=== PATIENT | male | born 1980 ===

== ENCOUNTER 2017-01-05 16:46 | Inpatient (IN) | payer MEDICARE, OTHER ==
[2017-01-05 16:46] VITALS: BMI 21.2
--- NOTE | 2017-01-05 18:11 | C.PDOC ---
History Of Present Illness 36 y/o male with PMHx of schizophrenia, bipolar disorder, anxiety, manic depression presents to ED with c/o hearing voices telling him to kill himself and other people for months. Patient with history of rehab for drug abuse, previously addicted to cocaine. Notes he recently filled prescription for Risperidone on 01/03/17 (2 days ago), and that symptoms worsening since then. Reports auditory and visual hallucinations. Describes seeing shadows and crystals; voices telling him to jump off a bridge. Denies suicidal attempt. No other medical complaints. Time Seen by Provider: 01/05/17 17:51 Chief Complaint (Nursing): Psychiatric Evaluation History Per: Patient History/Exam Limitations: no limitations Current Symptoms Are (Timing): Still Present Modifying Factor(s): None Associated Symptoms: Anxiety, Suicidal Thoughts Recent travel outside of the [place]: No Past Medical History Reviewed: Historical Data, Nursing Documentation, Vital Signs Vital Signs: Last Vital Signs Temp 98.4 F 01/05/17 22:55 Pulse 75 01/05/17 22:55 Resp 18 01/05/17 22:55 BP 108/65 01/05/17 22:55 Pulse Ox 98 01/05/17 22:55 - Medical History PMH: Anxiety, Bipolar Disorder, Depression, Schizophrenia - [facility] Procedures GROUP STYLIST APPRENTICE FOR SUBSTANCE ABUSE TREATMENT, PSYCHOEDUCATION (06/08/16) GROUP PSYCHOTHERAPY (07/07/16) INDIVIDUAL PSYCHOTHERAPY, SUPPORTIVE (07/07/16) MEDICATION MANAGEMENT (07/07/16) Family History: States: Unknown Family Hx - Social History Hx Tobacco Use: No Hx Alcohol Use: Yes Hx Substance Use: Yes - Immunization History Hx Tetanus Toxoid Vaccination: Yes Hx Influenza Vaccination: No Hx Pneumococcal Vaccination: No Review Of Systems Except As Marked, All Systems Reviewed And Found Negative. Constitutional: Negative for: Fever Cardiovascular: Negative for: Chest Pain Respiratory: Negative for: Shortness of Breath Gastrointestinal: Negative for: Vomiting Skin: Negative for: Rash Psych: Positive for: Anxiety, Depression, Other (auditory/visual hallucinations) Physical Exam - Physical Exam Appears: Non-toxic, No Acute Distress Skin: Normal Color, Warm, Dry Head: Atraumatic, Normacephalic Oral Mucosa: Moist Chest: Symmetrical Cardiovascular: Rhythm Regular, No Murmur Respiratory: Normal Breath Sounds, No Rales, No Rhonchi, No Wheezing Gastrointestinal/Abdominal: Soft, No Tenderness Back: Normal Inspection Extremity: Normal ROM, Capillary Refill (< 2 sec.) Neurological/Psych: Oriented x3, Normal Speech, Normal Cognition ED Course And Treatment - Laboratory Results Result Diagrams: 01/05/17 18:17 01/05/17 18:17 Lab Interpretation: No Acute Changes (UDS positive for cocaine) O2 Sat by Pulse Oximetry: 98 (RA) Pulse Ox Interpretation: Normal Progress Note: Patient evaluated by Crisis and will consult with psychiatry. - Physician Consult Information Physician Contacted: Rebeka Campos Outcome Of Conversation: Patent to remain in [facility] ED until his evaluation in the AM. Disposition - Disposition Disposition Time: 00:07 Condition: STABLE - Clinical Impression Clinical Impression: Schizophrenia, Suicidal ideation - Scribe Statement The provider has reviewed the documentation as recorded by the Stewart Wallace Provider Scribe Attestation: All medical record entries made by the Scribe were at my direction and personally dictated by me. I have reviewed the chart and agree that the record accurately reflects my personal performance of the history, physical exam, medical decision making, and the department course for this patient. I have also personally directed, reviewed, and agree with the discharge instructions and disposition. Physician Patient Turnover Patient Signed Over To: Valerie Horta Handoff Comments: Evaluation by Dr Campos in the AM.
[2017-01-05 18:21] LABS: BASO % 0.5 % (0.0-2.0); EOS # 0.1 K/uL (0.0-0.7); HEMATOCRIT 41.7 % (35.0-51.0); LYMPH # 2.5 K/uL (1.0-4.3); LYMPH % 28.5 % (20.0-40.0); MEAN CORPUSCULAR HGB CONC 34.5 g/dL (33.0-37.0); MEAN PLATELET VOLUME 8.6 fL (7.2-11.7); MONO # 1.4 K/uL (0.0-0.8); RED CELL DISTRIBUTION WIDTH 14.3 % (11.5-14.5); WHITE BLOOD COUNT 8.7 K/uL (4.8-10.8)
[2017-01-05 18:24] LABS: MEAN CELL VOLUME 92.7 fL (80.0-94.0)
[2017-01-05 18:26] LABS: RBC URINE 3 /hpf (0-3); URINE BACTERIA RARE (<OCC); URINE BILIRUBIN NEGATIVE (NEGATIVE); URINE BLOOD NEGATIVE (NEGATIVE); URINE COLOR Yellow (YELLOW); URINE GLUCOSE (UA) NORMAL (Normal); URINE KETONE NEGATIVE (NEGATIVE); URINE LEUKOCYTE ESTERASE NEG Leu/uL (Negative); URINE PROTEIN NEGATIVE (NEGATIVE); URINE UROBILINOGEN NORMAL mg/dL (0.2-1.0); WBC URINE < 1 /hpf (0-5)
[2017-01-05 18:29] LABS: CHLORIDE 100 mmol/L (98-107); SODIUM 138 mmol/L (132-148)
[2017-01-05 18:30] LABS: POTASSIUM 3.7 mmol/L (3.6-5.2)
[2017-01-05 18:31] LABS: GFR AFRICAN-AMERICAN > 60
[2017-01-05 18:32] LABS: ALB/GLOB RATIO 1.6 (1.0-2.1); ALKALINE PHOSPHATASE 49 U/L (38-126); ALT/SGPT 30 U/L (21-72); AST/SGOT 35 U/L (17-59); BILIRUBIN,TOTAL 0.5 mg/dL (0.2-1.3); BLOOD UREA NITROGEN 19 mg/dL (9-20); CARBON DIOXIDE 23 mmol/L (22-30); GLUCOSE,RANDOM 88 mg/dL (75-110)
[2017-01-05 18:33] LABS: ALCOHOL SERUM < 10 mg/dl (0-10)
[2017-01-06] MEDS ORDERED: Divalproex 500 mg DR Tab PO SCH (18:00)
--- NOTE | 2017-01-06 22:25 | PCM.PSYCH ---
Initial Psychiatric Evaluation - Initial Psychiatric Evaluation Type of Admission: Voluntary Legal Status: Capacity Chief Complaint (in patient's own words): "Hearing voices" History of Present Illness and Precipitating Events: The pt is seen, chart reviewed, case discussed He is a 36 yo LM Single with 3 children. Lives alone and he states "here and there," and he is on SSD. The patient is known to the junior underwriter and he has been to several hospitals recently. He says he doesn't follow-up with medications, Risperdal, Cogentin and Depakote. He went to [place] and came back. He denied using drugs and alcohol but his urine was positive for cocaine. He says he is hearing voices, paranoid, depressed and felt suicidal. He has no plan right now. He is stressed from his living conditions he says. Past psych history: Several admissions, one suicide attempt 2 months ago by OD. Used cocaine and alcohol in the past. Family psych history: Mother and sister had depression and anxiety Medical history: Denies Current Medications: Active Medications Generic Name Dose Route Start Last Admin Trade Name Freq PRN Reason Stop Dose Admin Benztropine Mesylate 1 mg 01/06/17 18:00 01/06/17 17:12 Cogentin PO 1 mg QPM LUCAS Administration Divalproex Sodium 500 mg 01/06/17 18:00 01/06/17 17:[address] PO 500 mg BID LUCAS Administration Haloperidol 5 mg 01/06/17 13:35 Haldol PO Q1H PRN agitation, max 4x/24h Hydroxyzine HCl 50 mg 01/06/17 13:35 Atarax PO Q6H PRN Anxiety Pneumococcal Polyvalent Vaccine 0.5 ml 01/08/17 10:00 Pneumovax 23 Vaccine IM 01/08/17 10:01 .ONCE ONE Risperidone 2 mg 01/06/17 18:00 01/06/17 17:12 Risperdal Tab PO 2 mg QPM LUCAS Administration Trazodone HCl 100 mg 01/06/17 13:35 Desyrel PO HS PRN Insomnia Past Psychiatric History - Past Psychiatric History Previous Treatment History: Inpatient Pertinent Medical Hx (Current Medical&Sleep Prob, Allergies): Allergies Allergy/AdvReac Type Severity Reaction Status Date / Time No Known Allergies Allergy Verified 07/14/16 03:34 Benztropine [Cogentin] 0.5 mg PO HS #14 tab 07/19/16 QUEtiapine [Seroquel] 200 mg PO DAILY #14 tab 07/19/16 QUEtiapine [Seroquel] 300 mg PO HS #45 tab 07/19/16 Thiamine [Vitamin B1 Tab] 100 mg PO DAILY #14 tab 07/19/16 Atorvastatin Calcium 40 mg PO DAILY 01/05/17 Folic Acid 1 mg PO DAILY 01/05/17 risperiDONE [RisperDAL Tab] 1 mg PO DAILY 01/05/17 Review of Systems - Neurological Neurological: UNREMARKABLE - Psychiatric Psychiatric: Abnormal Sleep Pattern, Anxiety, Change in Appetite, Depression, Difficulty Concentrating, Hallucinations, Irritability, Paranoia. absent: Homicidal Ideation, Suicidal Ideation Mental Status Examination - Personal Presentation Personal Presentation: Looks stated age - Affect Affect: Constricted - Motor Activity Motor Activity: Calm - Reliability in Providing Information Reliability in Providing Information: Fair - Speech Speech: Organized - Mood Mood: Depressed, Anxious - Formal Thought Process Formal Thought Process: No Impairment - Cognitive Functions Orientation: Person, Place, Situation, Time Sensorium: Alert Attention/Concentration: Attentive Abstract Thinking: [place] Estimate of Intelligence: Below average Judgement: Intact, as evidence by: Insight regarding need for hospitalization Memory: Recent intact, as evidence by: Ability to recall events of the day, Remote intact, as evidenced by: Abilit to recall sig. life events - Risk Risk: Diminished functioning - Strength & Assets Inventory Strength & Assets Inventory: Life experience, Cooperative - Limitations Limitations: Living alone DSM 5 DX - DSM 5 DSM 5 Diagnosis: Major depression, recurrent, severe with psychosis Cocaine use d/o Alcohol use d/o Personality d/o - unspecified r/o Malingering - Recommended/Plan of Treatment Treatment Recommendations and Plan of Treatment: Prozac for depression Risperdal 4 voices and paranoia Support and psychoeducation Attend groups and activities Individual therapy Refer to rehabilitation for cocaine and alcohol 32 minutes Projected ELOS: 5 days Prognosis: good with treatment Discharge Plan and Discharge Criteria: no Si or AH Refer to rehab - Smoking Cessation Smoking Cessation Initiated: Yes
--- NOTE | 2017-01-07 15:08 | PCM.PYCHPN ---
Psychiatric Progress Note - Psychiatric Progress Note Patient seen today, length of contact: 17 min Patient Chief Complaint: "I'm going to [facility]" Problems Identified/Issues Discussed: The pt is seen, chart reviewed, case discussed with staff. The pt is compliant with medications and reports no side-effects. Symptoms are improving but needs more time to stabilize. He is already euthymic (malingering depression?) and voices are "less" now. Wants to go to [facility]. He is advised to contact and do a phone screen. After care discussed, support and psychoeducation given. Medication Change: Yes Medical Record Reviewed: Yes Mental Status Examination - Cognitive Function Orientation: Person, Place, Situation, Time Memory: Intact Attention: Poor Concentration: Poor Association: WNL Fund of Knowledge: Poor - Mood Mood: Neutral - Affect Affect: Broad - Speech Speech: Appropriate - Formal Thought Process Formal Thought Process: No Impairment - Suicidal Ideation Suicidal Ideation: No - Homicidal Ideation Homicidal Ideation: No Goal/Treatment Plan - Goal/Treatment Plan Need for Continued Stay: Discharge may exacerbated symptoms, Severe functional impairment Progress Toward Problem(s) and Goals/Treatment Plan: Prozac for depression Risperdal for voices and paranoia Support and psychoeducation Attend groups and activities Individual therapy Refer to rehabilitation for cocaine and alcohol Estimated Date of D/C: 01/10/17
[2017-01-08 09:50] VITALS: O2SAT 89
[2017-01-08] MEDS ORDERED: Pneumococcal 23-Valent Vaccine IM ONE (10:00)
--- NOTE | 2017-01-08 13:18 | PCM.PYCHPN ---
Psychiatric Progress Note - Psychiatric Progress Note Patient seen today, length of contact: 16 min Patient Chief Complaint: "I'm not happy with my dad" Problems Identified/Issues Discussed: The pt is seen, chart reviewed, case discussed with staff. The pt is compliant with medications and reports no side-effects. Symptoms are improving but needs more time to stabilize. Wants to go to [facility]. He called and they asked for records After care discussed, support and psychoeducation given. His father hung up on him but he needs him to bring his ID. Plumber Supervisor will call with his permission Medication Change: No Medical Record Reviewed: Yes Mental Status Examination - Cognitive Function Orientation: Person, Place, Situation, Time Memory: Intact Attention: Poor Concentration: Poor Association: WNL Fund of Knowledge: Poor - Mood Mood: Neutral - Affect Affect: Broad - Speech Speech: Appropriate - Formal Thought Process Formal Thought Process: No Impairment - Suicidal Ideation Suicidal Ideation: No - Homicidal Ideation Homicidal Ideation: No Goal/Treatment Plan - Goal/Treatment Plan Need for Continued Stay: Discharge may exacerbated symptoms, Severe functional impairment Progress Toward Problem(s) and Goals/Treatment Plan: Prozac for depression Risperdal for voices and paranoia Support and psychoeducation Attend groups and activities Individual therapy Refer to rehabilitation for cocaine and alcohol Estimated Date of D/C: 01/10/17
[2017-01-09] MEDS ORDERED: Aluminum Hydroxide/Magnesium Hydroxide Susp (30 mL) PO STA (14:08)
--- NOTE | 2017-01-09 17:25 | PCM.PYCHPN ---
Psychiatric Progress Note - Psychiatric Progress Note Patient seen today, length of contact: 16 min Patient Chief Complaint: "I'm OK. I spoke to my dad" Problems Identified/Issues Discussed: The pt is seen, chart reviewed, case discussed with staff. The pt is compliant with medications and reports no side-effects. He looks better Symptoms are improving but needs more time to stabilize. Wants to go to [facility]. His fa will bring his ID tomorrow. Medication Change: No Medical Record Reviewed: Yes Mental Status Examination - Cognitive Function Orientation: Person, Place, Situation, Time Memory: Intact Attention: Poor Concentration: Poor Association: WNL Fund of Knowledge: Poor - Mood Mood: Neutral - Affect Affect: Broad - Speech Speech: Appropriate - Formal Thought Process Formal Thought Process: No Impairment - Suicidal Ideation Suicidal Ideation: No - Homicidal Ideation Homicidal Ideation: No Goal/Treatment Plan - Goal/Treatment Plan Need for Continued Stay: Discharge may exacerbated symptoms, Severe functional impairment Progress Toward Problem(s) and Goals/Treatment Plan: Prozac for depression Risperdal for voices and paranoia Support and psychoeducation Attend groups and activities Individual therapy Refer to rehabilitation for cocaine and alcohol Estimated Date of D/C: 01/11/17 If changed, why: will relapse if tomorrow dc'ed
[2017-01-09] MEDS ORDERED: Aluminum Hydroxide/Magnesium Hydroxide Susp (30 mL) PO ONE (17:50)
--- NOTE | 2017-01-10 11:34 | PCM.PYCHDC ---
Mental Status Examination - Mental Status Examination Orientation: Person, Place, Situation, Time Memory: Intact Mood: Anxious Affect: Broad Speech: Appropriate Attention: WNL Concentration: WNL Association: WNL Fund of Knowledge: WNL Formal Thought Process: No Impairment Suicidal Ideation: No Current Homicidal Ideation?: No Discharge Summary - Discharge Note Reason for Hospitalization: Depression and suicidal ideation Consultations:: List each consultation separately and include: 1. Reason for request. 2. Findings. 3. Follow-up Summary of Hospital Course include:: 1. Description of specific treatment plan utilized for patients during their course of treatmen. 2. Summarize the time- course for resolution of acute symptoms and/or regressed behaviors. 3. Describe issues identified and worked on during hospitalization. 4. Describe medication utilized. 5. Describe medical problems identified and treated. 6. Reassessment of suicide risk Summary of Hospital Course: The pt is seen, chart reviewed, case discussed On admission: He is a 36 yo LM Single with 3 children. Lives alone and he states "here and there," and he is on SSD. 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 He says he doesn't follow-up with medications, Risperdal, Cogentin and Depakote. He went to [place] and came back. He denied using drugs and alcohol but his urine was positive for cocaine. He says he is hearing voices, paranoid, depressed and felt suicidal. He has no plan right now. He is stressed from his living conditions he says. Past psych history: Several admissions, one suicide attempt 2 months ago by OD. Used cocaine and alcohol in the past. Family psych history: Mother and sister had depression and anxiety Medical history: Denies Hospital course: The pt was admitted and started on treatment with psychotherapy, support, psychoeducation and medications. MS and CBT used. The pt attended groups and activities, as well as milieu therapy. All the risks and benefits of medications are discussed and the patient understood and agreed. After care discussed with the patient. He was vague and evasive and claimed he wanted to go to [facility], which was an unlikely place for him to be accepted. He then entartained [facility] but refused that too. He was to be admitted tomorrow but at the treatment team meeting our SW told him that we had to inform the [facility]'s Law office as he is a registered sex offender. That set him off and he started to yell and curse. He said he wants to be dc'ed right away, but he also claimed he is not running away from the law or that there is a warrant or smt. He later admitted that he was supposed to have informed his officer before leaving his county ([place] office) and he didn 't. He will likely be violated. He is encouraged to stay and complete his referral and make a phone call to his PO from here. He refused. Risks of leaving early discussed. He is referred to [facility] IOP but he is unlikely to go there (will return to [place] he implied to someone else) Rx given for current meds. - Final Diagnosis (DSM 5) Condition upon Discharge: IMPROVED DSM 5: Depression - unspecified Cocaine use d/o Alcohol use d/o Personality d/o - unspecified malingering Disposition: HOME/ ROUTINE Follow-up Treatment Plan: Continue below medications after discharge. Follow after care plan as discussed - IOP at [facility] Use relapse prevention skills Return to ER or call 911 if suicidal, homicidal or symptoms relapse. Stay away from stress, alcohol and drugs. See PO and clear up any legal issues. Prescriptions/Medication Reconciliation: traZODone [Desyrel] 100 mg PO HS PRN #30 tab PRN Reason: Insomnia FLUoxetine [Prozac] 20 mg PO DAILY #30 cap risperiDONE [RisperDAL Tab] 2 mg PO QPM #30 tab - Smoking Cessation Smoking Cessation Medication prescribed: No - Antipsychotic Medications Pt discharged on 2 or more routine antipsychotic medications: No
[2017-01-10 11:49] VITALS: BP 124/83; PULSE 108; RESP 16; TEMP 97
== END 2017-01-10 12:15 | disposition home or self-care (01) | DRG 885 ==
LOC: C.ER 16:46 → C.9OBSV 01-06 00:09 → OBSVTOIN 01-06 13:23 → C.9E 01-06 13:28 → C.5E 01-06 13:51
PROVIDERS: ADMIT Emergency Medicine; ATTEND Psychiatry & Neurology Psychiatry
PROC: GZ56ZZZ Individual Psychotherapy, Supportive (ICD-10-PCS; principal; 2017-01-06)
PROC: GZHZZZZ Group Psychotherapy (ICD-10-PCS; 2017-01-06)
PROC: GZ51ZZZ Individual Psychotherapy, Behavioral (ICD-10-PCS; 2017-01-06)
DX: F33.3 Major depressive disorder, recurrent, severe with psychotic symptoms (principal); F14.90 Cocaine use, unspecified, uncomplicated; R45.851 Suicidal ideations; Z81.8 Family history of other mental and behavioral disorders; Z76.5 Malingerer [conscious simulation]; Z91.5 Personal history of self-harm

== ENCOUNTER 2017-02-01 18:19 | Inpatient (IN) | payer MEDICARE ==
[2017-02-01 18:19] VITALS: BMI 21.2
[2017-02-01 19:17] LABS: EOS # 0.1 K/uL (0.0-0.7)
[2017-02-01 19:21] LABS: BASO % 0.5 % (0.0-2.0); EOS % 1.7 % (0.0-4.0); LYMPH % 24.2 % (20.0-40.0); MEAN CELL VOLUME 93.6 fL (80.0-94.0); MEAN CORPUSCULAR HEMOGLOBIN 31.9 pg (27.0-31.0); MEAN CORPUSCULAR HGB CONC 34.1 g/dL (33.0-37.0); MEAN PLATELET VOLUME 8.3 fL (7.2-11.7); MONO # 0.6 K/uL (0.0-0.8); MONO % 7.6 % (0.0-10.0); RED CELL DISTRIBUTION WIDTH 13.8 % (11.5-14.5); WHITE BLOOD COUNT 8.3 K/uL (4.8-10.8)
[2017-02-01 19:27] LABS: CHLORIDE 102 mmol/L (98-107); SODIUM 137 mmol/L (132-148)
[2017-02-01 19:29] LABS: GFR AFRICAN-AMERICAN > 60
[2017-02-01 19:30] LABS: ALB/GLOB RATIO 1.3 (1.0-2.1); ALKALINE PHOSPHATASE 79 U/L (38-126); ALT/SGPT 52 U/L (21-72); AST/SGOT 42 U/L (17-59); BILIRUBIN,TOTAL 0.6 mg/dL (0.2-1.3); BLOOD UREA NITROGEN 16 mg/dL (9-20); CALCIUM 8.8 mg/dl (8.6-10.4); CARBON DIOXIDE 24 mmol/L (22-30); GLUCOSE,RANDOM 88 mg/dL (75-110); TOTAL PROTEIN 7.2 g/dL (6.3-8.3)
[2017-02-01 19:31] LABS: ALCOHOL SERUM < 10 mg/dl (0-10)
[2017-02-01 19:35] LABS: RBC URINE 3 /hpf (0-3); URINE BILIRUBIN NEGATIVE (NEGATIVE); URINE BLOOD NEGATIVE (NEGATIVE); URINE COLOR Yellow (YELLOW); URINE GLUCOSE (UA) NORMAL (Normal); URINE KETONE TRACE mg/dL (NEGATIVE); URINE LEUKOCYTE ESTERASE NEG Leu/uL (Negative); URINE PROTEIN NEGATIVE (NEGATIVE); WBC URINE 1 /hpf (0-5)
--- NOTE | 2017-02-01 20:09 | C.PDOC ---
Time Seen by Provider: 02/01/17 18:53 Chief Complaint (Nursing): Psychiatric Evaluation History Per: Patient Onset/Duration Of Symptoms: Days Current Symptoms Are (Timing): Still Present Modifying Factor(s): Cocaine Associated Symptoms: Depression, Suicidal Thoughts, Suicidal Plan (to hang himself) Additional History Per: Prior Records Past Medical History Reviewed: Historical Data, Nursing Documentation, Vital Signs Vital Signs: Last Vital Signs Temp 98 F 02/01/17 18:25 Pulse 83 02/01/17 18:25 Resp 18 02/01/17 18:25 BP 113/64 02/01/17 18:25 Pulse Ox 98 02/01/17 18:25 - Medical History PMH: Anxiety, Bipolar Disorder, Depression, Schizophrenia - [facility] Procedures GROUP MERCHANDISER SEASONAL FOR SUBSTANCE ABUSE TREATMENT, PSYCHOEDUCATION (06/08/16) GROUP PSYCHOTHERAPY (01/06/17) INDIVIDUAL PSYCHOTHERAPY, BEHAVIORAL (01/06/17) INDIVIDUAL PSYCHOTHERAPY, SUPPORTIVE (01/06/17) MEDICATION MANAGEMENT (01/18/17) Family History: States: Unknown Family Hx - Social History Hx Tobacco Use: No Hx Alcohol Use: Yes Hx Substance Use: Yes - Immunization History Hx Tetanus Toxoid Vaccination: Yes Hx Influenza Vaccination: No Hx Pneumococcal Vaccination: No Review Of Systems Except As Marked, All Systems Reviewed And Found Negative. Constitutional: Negative for: Fever, Weakness Cardiovascular: Negative for: Chest Pain Respiratory: Negative for: Shortness of Breath Gastrointestinal: Negative for: Vomiting, Abdominal Pain Musculoskeletal: Negative for: Neck Pain Neurological: Negative for: Weakness, Numbness, Seizures Psych: Positive for: Psychosis Physical Exam - Physical Exam Appears: Non-toxic, No Acute Distress Skin: Normal Color, Warm, Dry, No Rash Head: Atraumatic, Normacephalic Eye(s): bilateral: PERRL, EOMI Neck: Normal ROM, Supple Cardiovascular: Rhythm Regular Respiratory: Normal Breath Sounds, No Accessory Muscle Use Gastrointestinal/Abdominal: Soft, No Tenderness Back: No CVA Tenderness Extremity: Normal ROM, No Deformity Neurological/Psych: Oriented x3, Normal Motor, Normal Sensation ED Course And Treatment - Laboratory Results Result Diagrams: 02/01/17 19:13 02/01/17 19:13 Lab Interpretation: No Acute Changes O2 Sat by Pulse Oximetry: 98 Pulse Ox Interpretation: Normal Progress Note: Pt is medically stable for psychiatric admission. Disposition Counseled Patient/Family Regarding: Studies Performed, Diagnosis - Disposition Disposition: HOSPITALIZED Disposition Time: 20:18 Condition: STABLE - Clinical Impression Clinical Impression: Schizoaffective disorder, bipolar type Decision To Admit - Pt Status Changed To: Hospital Disposition Of: Inpatient - Admit Certification Admit to Inpatient:: After my assessment, the patient will require hospitalization for at least two midnights. This is because of the severity of symptoms shown, intensity of services needed, and/or the medical risk in this patient being treated as an outpatient. - InPatient: Physician Admission Certification: I certify that this patient requires 2 or more midnights of care for the following reason:: Psych - . Bed Request Type: Psychiatry Admitting Physician: Munir Jones Patient Diagnosis: Schizoaffective disorder, bipolar type
--- NOTE | 2017-02-02 16:29 | PCM.PSYCH ---
Initial Psychiatric Evaluation - Initial Psychiatric Evaluation Type of Admission: Voluntary Legal Status: Capacity Chief Complaint (in patient's own words): "I think of hurting myself." History of Present Illness and Precipitating Events: Patient is a 36 HM. He is single, has 3 children at ages 15, 11, 6, and lives with his father on [address] [address] in [place], [place]. Patient admits that he may not be able to go back to his father's after discharge and has no where else to go. Patient is unemployed and receives SSD. Patient reports that he has been using cocaine since he was 20 yo, last used 4 days ago, and smokes an average of $30 a day. Patient reports that he has been using alcohol since he was 15 yo, last used yesterday, and averages 4 beers and more than a fifth of vodka per day. Denies use of heroin, opioids, pain killers , marijuana. He smokes 8 cigarettes a day and requests a nicotine patch. Longest sobriety was 6 months in 2014 where the patient relapsed because of depression, stress, loneliness. Patient PMH is significant for Depression, Bipolar Disorder, Schizophrenia, suicide attempts presents today feeling "depressed, anxious and sad". Patient admits to current thoughts of hurting himself, has a plan that he does not want to share. Denies homicidal ideation. Admits to 6-7 suicide attempts by hanging , his last attempt was 2-3 days ago via hanging himself. Feels that people are following him and trying to kill him, says he is not sure who but knows they are people that have problems with him. Denies feeling like people can read his mind and thoughts. Has previously seen Dr. Chavez as his psychiatrist at [facility] in [place], [place]. Last visit was 1 year ago. Patient was hospitalized for 2 years at [facility] for stress and attempted suicide. Plans after discharge includes planning and maintaining a healthy self. PMH: Denies Medications: depakote, haldol, seroquel Allergies: NKDA Psych Hx: Depression, Bipolar Disorder, Schizophrenia. Psychiatric Hospitalization Hx: [facility] for 2 years for attempted suicide by hanging because of suicide attempt, stress. Has been hospitalized many times in [facility], [facility]. Family Psych Hx: Uncle and cousin completed suicide. Mother - depressed. father - stressed Family Abuse Hx: uncle, aunt, cousins use cocaine. Legal issues: Denies current legal issues. 36 minutes Current Medications: Active Medications Generic Name Dose Route Start Last Admin Trade Name Freq PRN Reason Stop Dose Admin Benztropine Mesylate 0.5 mg 02/01/17 22:00 02/01/17 22:28 Cogentin PO 0.5 mg HS LUCAS Administration Bupropion HCl 75 mg 02/02/17 10:00 02/02/17 11:18 Wellbutrin PO 75 mg BID LUCAS Administration Lorazepam 1 mg 02/01/17 20:51 Ativan PO Q6 PRN Anxiety Midodrine 2.5 mg 02/02/17 10:00 02/02/17 11:18 Proamatine PO 2.5 mg BID LUCAS Administration Quetiapine Fumarate 400 mg 02/01/17 22:00 02/01/17 22:28 Seroquel PO 400 mg HS LUCAS Administration Past Psychiatric History - Past Psychiatric History Pertinent Medical Hx (Current Medical&Sleep Prob, Allergies): Allergies Allergy/AdvReac Type Severity Reaction Status Date / Time No Known Allergies Allergy Verified 01/18/17 22:14 Benztropine [Cogentin] 0.5 mg PO HS #14 tab 01/25/17 Cholecalciferol [Vitamin D 1000 IU] 2,000 iu PO DAILY #7 tab 01/25/17 Folic Acid 1 mg PO DAILY #14 tab 01/25/17 Midodrine [Proamatine] 2.5 mg PO BID #14 tab 01/25/17 Nicotine 21 mg/24 hr [Nicoderm Cq] 1 patch TD DAILY #14 patch 01/25/17 Quetiapine Fumarate [Seroquel] 400 mg PO HS #14 tab 01/25/17 Thiamine [Vitamin B1 Tab] 100 mg PO DAILY #14 tab 01/25/17 buPROPion [Wellbutrin] 75 mg PO BID #30 tab 01/25/17 Review of Systems - Neurological Neurological: Dizziness - Psychiatric Psychiatric: Anxiety, Depression, Paranoia, Suicidal Ideation. absent: Auditory Hallucinations, Hallucinations, Homicidal Ideation, Visual Hallucinations Mental Status Examination - Personal Presentation Personal Presentation: Looks stated age - Motor Activity Motor Activity: Calm - Reliability in Providing Information Reliability in Providing Information: Good - Speech Speech: Organized - Mood Mood: Depressed, Anxious - Formal Thought Process Formal Thought Process: Paranoia - Risk Risk: Suicidal Additional comments: Has a plan but does not want to share it. Attempted suicide 3-4 days ago via hanging. DSM 5 DX - DSM 5 DSM 5 Diagnosis: Bipolar One - depressed Cocaine Use Disorder - Severe Alcohol Use Disorder - Severe - Recommended/Plan of Treatment Treatment Recommendations and Plan of Treatment: Severe Depression - Suicidal Ideation -CBT -PsychoEducation -Supportive therapy, group therapy, individual therapy Cocaine Use Disorder -CBT -MD -Supportive therapy, group therapy, individual therapy Alcohol Use Disorder support and psychoeducation as needed medication and vitamins attend groups and activities MD and CBT for abstinence Alcohol use disorder severe -CBT -Psychoeducation -Supportive therapy, individual therapy -Use MD for abstinence Alcohol withdrawal uncomplicated -CBT -Psychoeducation -Supportive therapy, individual therapy -Librium when necessary -Continue folic acid/thiamine/multivitamin Projected ELOS: 5 days Prognosis: good with treatment - Smoking Cessation Smoking Cessation Initiated: Yes
[2017-02-03] MEDS: buPROPion 150 mg/24 Hours XL Tab PO SCH (10:35)
--- NOTE | 2017-02-03 14:11 | PCM.PYCHPN ---
Psychiatric Progress Note - Psychiatric Progress Note Patient seen today, length of contact: 16 min Patient Chief Complaint: "I'm not feeling too good." Problems Identified/Issues Discussed: Patient says that he is not feeling well, depressed and feels the same as yesterday. Reports thoughts of hurting himself without a plan. Denies homicidal ideation. Patient slept well and has a good appetite. Withdrawal symptoms include anxiety, headaches, chills. Reports side effects of medication including dizziness, weakness. Denies auditory and visual hallucinations, paranoid thoughts. Plans for after discharge include the possibility of [facility]. Mental Status Examination - Cognitive Function Orientation: Person, Place, Situation, Time Memory: Intact Attention: Poor Concentration: Poor - Mood Mood: Depressed, Anxious - Affect Affect: Constricted, Blunted, Depressed - Speech Speech: Soft - Suicidal Ideation Suicidal Ideation: Yes Plan: Denies having a plan. - Homicidal Ideation Homicidal Ideation: No Goal/Treatment Plan - Goal/Treatment Plan Need for Continued Stay: Severe depression anxiety, Discharge may exacerbated symptoms Progress Toward Problem(s) and Goals/Treatment Plan: Severe Depression - Suicidal Ideation -CBT -PsychoEducation -Supportive therapy, group therapy, individual therapy Cocaine Use Disorder -CBT -CA -Supportive therapy, group therapy, individual therapy Alcohol Use Disorder -Support and psychoeducation -As needed medication and vitamins -Attend groups and activities -CA and CBT for abstinence Alcohol use disorder severe -CBT -Psychoeducation -Supportive therapy, individual therapy -Use CA for abstinence Alcohol withdrawal uncomplicated -CBT -Psychoeducation -Supportive therapy, individual therapy -Librium when necessary -Continue folic acid/thiamine/multivitamin
[2017-02-04 07:22] VITALS: O2SAT 99
[2017-02-04] MEDS: buPROPion 150 mg/24 Hours XL Tab PO SCH (11:19)
--- NOTE | 2017-02-04 15:47 | PCM.PYCHPN ---
Psychiatric Progress Note - Psychiatric Progress Note Patient seen today, length of contact: 16 min Patient Chief Complaint: "I'm better but I'm still depressed." Problems Identified/Issues Discussed: The pt is seen, chart reviewed, case discussed with staff. Patient says that he feels depressed because his family will not help him, is unemployed, and using drugs. Patient says detox is going well, slept 6 hours. Withdrawal symptoms include hot flashes and denies dizziness, nausea, sweating, shaking, fever, chills. Denies any side effects to his medications. Denies suicidal and homicidal ideation, auditory and visual hallucinations, feeling like people are following him, out to get him, reading his mind and thoughts. Plans for after discharge include [facility], patient will be trying to contact them today. Late entry: Pt says [facility]'t accept him due to his sex offender status. He is upset and says it's "a discrimination." He wants to leave tomorrow to [facility] where his PO [facility] and ask for help. Medication Change: Yes Medical Record Reviewed: Yes Mental Status Examination - Cognitive Function Orientation: Person, Place, Situation, Time Memory: Intact Attention: WNL Concentration: WNL () - Mood Mood: Depressed - Affect Affect: Constricted - Speech Speech: Appropriate - Formal Thought Process Formal Thought Process: No Impairment - Suicidal Ideation Suicidal Ideation: No - Homicidal Ideation Homicidal Ideation: No Goal/Treatment Plan - Goal/Treatment Plan Need for Continued Stay: Severe depression anxiety, Discharge may exacerbated symptoms Progress Toward Problem(s) and Goals/Treatment Plan: Severe Depression -CBT -PsychoEducation -Supportive therapy, group therapy, individual therapy Cocaine Use Disorder -CBT -SC -Supportive therapy, group therapy, individual therapy Alcohol Use Disorder -Support and psychoeducation -As needed medication and vitamins -Attend groups and activities -SC and CBT for abstinence Alcohol use disorder severe -CBT -Psychoeducation -Supportive therapy, individual therapy -Use [place] for abstinence Alcohol withdrawal uncomplicated -CBT -Psychoeducation -Supportive therapy, individual therapy -Librium when necessary -Continue folic acid/thiamine/multivitamin
[2017-02-05] MEDS: buPROPion 150 mg/24 Hours XL Tab PO SCH (09:36)
--- NOTE | 2017-02-05 14:46 | PCM.PYCHPN ---
Psychiatric Progress Note - Psychiatric Progress Note Patient seen today, length of contact: 16 min Patient Chief Complaint: "I'm upset but ok" Problems Identified/Issues Discussed: The pt is seen, chart reviewed, case discussed with staff. The pt is compliant with medications and reports no side-effects. Symptoms are improving but needs more time to stabilize. After care discussed, support and psychoeducation given. Medication Change: No Medical Record Reviewed: Yes Mental Status Examination - Cognitive Function Orientation: Person, Place, Situation, Time Memory: Intact Attention: WNL Concentration: WNL () - Mood Mood: Depressed - Affect Affect: Constricted - Speech Speech: Appropriate - Formal Thought Process Formal Thought Process: No Impairment - Suicidal Ideation Suicidal Ideation: No - Homicidal Ideation Homicidal Ideation: No Goal/Treatment Plan - Goal/Treatment Plan Need for Continued Stay: Severe depression anxiety, Discharge may exacerbated symptoms Progress Toward Problem(s) and Goals/Treatment Plan: Severe Depression -CBT -PsychoEducation -Supportive therapy, group therapy, individual therapy Cocaine Use Disorder -CBT -NH -Supportive therapy, group therapy, individual therapy Alcohol Use Disorder -Support and psychoeducation -As needed medication and vitamins -Attend groups and activities -NH and CBT for abstinence Alcohol use disorder severe -CBT -Psychoeducation -Supportive therapy, individual therapy -Use [place] for abstinence Alcohol withdrawal uncomplicated -CBT -Psychoeducation -Supportive therapy, individual therapy -Librium when necessary -Continue folic acid/thiamine/multivitamin
[2017-02-06] MEDS ORDERED: Aluminum Hydroxide/Magnesium Hydroxide Susp (30 mL) PO PRN (00:51)
[2017-02-06 07:43] VITALS: BP 104/64; PULSE 86; RESP 18; TEMP 97.9
--- NOTE | 2017-02-06 09:22 | PCM.PYCHDC ---
Mental Status Examination - Mental Status Examination Orientation: Person, Place, Situation, Time Memory: Intact Mood: Anxious Affect: Constricted Speech: Appropriate Attention: WNL Concentration: WNL Association: WNL Fund of Knowledge: WNL Formal Thought Process: No Impairment Suicidal Ideation: No Current Homicidal Ideation?: No Discharge Summary - Discharge Note Reason for Hospitalization: Feeling very depressed and suicidal Psychiatric History (includes Medical, Family, Personal Hx): multiple admissions , questionable bipolar diag., mostly Langlois II symptoms Consultations:: List each consultation separately and include: 1. Reason for request. 2. Findings. 3. Follow-up Summary of Hospital Course include:: 1. Description of specific treatment plan utilized for patients during their course of treatmen. 2. Summarize the time- course for resolution of acute symptoms and/or regressed behaviors. 3. Describe issues identified and worked on during hospitalization. 4. Describe medication utilized. 5. Describe medical problems identified and treated. 6. Reassessment of suicide risk Summary of Hospital Course: On admission: Patient is a 36 HM. He is single, has 3 children at ages 15, 11, 6, and lives with his father on [address] in [place], [place]. Patient admits that he may not be able to go back to his father's after discharge and has no where else to go. Patient is unemployed and receives SSD. Patient reports that he has been using cocaine since he was 20 yo, last used 4 days ago, and smokes an average of $30 a day. Patient reports that he has been using alcohol since he was 15 yo, last used yesterday, and averages 4 beers and more than a fifth of vodka per day. Denies use of heroin, opioids, pain killers , marijuana. He smokes 8 cigarettes a day and requests a nicotine patch. Longest sobriety was 6 months in 2015 where the patient relapsed because of depression, stress, loneliness. Patient PMH is significant for Depression, Bipolar Disorder, suicide attempts presents today feeling "depressed, anxious and sad". Patient admits to current thoughts of hurting himself, has a plan that he does not want to share. Denies homicidal ideation. Admits to 6-7 suicide attempts by hanging, his last attempt was 2-3 days ago via hanging himself. Feels that people are following him and trying to kill him, says he is not sure who but knows they are people that have problems with him. Hospital course: The pt was admitted and started on treatment with psychotherapy, support, psychoeducation and medications. GA and CBT used for his drug use and depression. The pt attended groups and activities, as well as milieu therapy. All the risks and benefits of medications are discussed and the patient understood and agreed. After care discussed with the patient, he was interested in [facility] but, like other rehabs, they too denied him based on his sex-offender registrant status. He decided to go back to [place] and ask help from his PO and likely move his case to [facility]. - Final Diagnosis (DSM 5) Condition upon Discharge: STABLE Disposition: HOME/ ROUTINE Follow-up Treatment Plan: Did not want a rx. He says he has meds Follow after care plan as discussed: Go to meetings, crisis center, call us for assistance. He did not want an appointment as his plans were vague. Use relapse prevention skills Return to ER or call 911 if suicidal, homicidal or symptoms relapse. Stay away from stress, alcohol and drugs. - Smoking Cessation Smoking Cessation Medication prescribed: No - Antipsychotic Medications Pt discharged on 2 or more routine antipsychotic medications: No
== END 2017-02-06 11:15 | disposition home or self-care (01) | DRG 885 ==
LOC: C.ER 18:19 → C.5E 20:19
PROC: GZ3ZZZZ Medication Management (ICD-10-PCS; principal; 2017-02-01)
PROC: GZHZZZZ Group Psychotherapy (ICD-10-PCS; 2017-02-01)
PROC: HZ59ZZZ Individual Psychotherapy for Substance Abuse Treatment, Supportive (ICD-10-PCS; 2017-02-01)
PROC: HZ46ZZZ Group Counseling for Substance Abuse Treatment, Psychoeducation (ICD-10-PCS; 2017-02-01)
PROC: GZ56ZZZ Individual Psychotherapy, Supportive (ICD-10-PCS; 2017-02-01)
PROC: HZ89ZZZ Medication Management for Substance Abuse Treatment, Other Replacement Medication (ICD-10-PCS; 2017-02-01)
DX: F31.4 Bipolar disorder, current episode depressed, severe, without psychotic features (principal); R45.851 Suicidal ideations; F14.20 Cocaine dependence, uncomplicated; F10.230 Alcohol dependence with withdrawal, uncomplicated; F17.210 Nicotine dependence, cigarettes, uncomplicated